=== PATIENT | male | born 1985 | race Caucasian/White ===

== ENCOUNTER 2019-02-14 07:41 | Emergency (ER) | payer MEDICAID, OTHER ==
[~2019-02-14] VITALS: Ht 182.9 cm; Wt 73.0 kg
[2019-02-14] MEDS ORDERED: PREDNISONE 20MG TABLET PO ONE (09:15)
[2019-02-14] MEDS ORDERED: IBUPROFEN 600MG TABLET PO ONE (09:15)
[2019-02-14] MEDS ORDERED: PREDNISONE 20MG TABLET ONE (09:31)
[2019-02-14] MEDS ORDERED: IBUPROFEN 600MG TABLET ONE (09:32)
[2019-02-14 09:49] VITALS: BP 129/99
== END 2019-02-14 10:01 | disposition home or self-care (01) ==
LOC: ER 07:41
DX: K12.2 Cellulitis and abscess of mouth (principal); R03.0 Elevated blood-pressure reading, without diagnosis of hypertension
CPT/HCPCS: 87070; 87430; 99283; J7512